=== PATIENT | female | born 1965 | race Caucasian/White ===

== ENCOUNTER 2025-02-09 16:16 | Emergency (ER) | payer MEDICAID ==
[~2025-02-09] VITALS: Ht 170.2 cm; Wt 73.9 kg
[2025-02-09 16:19] VITALS: O2SAT 100
[2025-02-09 16:50] LABS: BASOPHILS % 0.4 % (0.0-2.0); EOSINOPHILS % 2.2 % (0.0-5.0); HEMATOCRIT. 38.0 % (36.0-48.0); HEMOGLOBIN. 13.0 g/dL (12.0-16.0); LYMPHOCYTES % 35.8 % (20.0-50.0); MEAN PLATELET VOLUME 8.9 fl (7.4-10.4); MONOCYTES % 7.0 % (2.0-8.0); NEUTROPHILS % 54.6 % (40.0-76.0); PLATELET 305 x1000/uL (130-400); RED BLOOD CELL COUNT 4.25 mill/uL (4.2-5.4); RED CELL DISTRIBUTION WIDTH 13.0 % (11.6-14.6)
[2025-02-09 17:01] LABS: CREATININE 0.9 mg/dL (0.6-1.0)
[2025-02-09 17:02] LABS: UREA NITROGEN BLOOD 14 mg/dL (9-23)
[2025-02-09 17:03] LABS: ASPARTATE AMINOTRANSFERASE 19 IU/L (<34); BILIRUBIN DIRECT < 0.1 mg/dL (<=3.0)
[2025-02-09 17:04] LABS: BILIRUBIN TOTAL 0.3 mg/dL (0.1-1.0); PROTEIN TOTAL 8.2 g/dL (6.0-8.3)
[2025-02-09] MEDS ORDERED: IBUP-2030 MT (17:11)
[2025-02-09] MEDS: ACETAMINOPHEN 500MG TABLET PO ONE (17:19)
[2025-02-09] MEDS: METOCLOPRAMIDE HCL 10MG/2ML VIAL IV ONE (17:29)
[2025-02-09] MEDS: DIPHENHYDRAMINE 50MG/ML VIAL IV ONE (17:29)
[2025-02-09] MEDS: SODIUM CHLORIDE 0.9% 1,000 ML IV ONE (17:29)
[2025-02-09] MEDS: KETOROLAC 15MG/ML VIAL IV ONE (17:29)
[2025-02-09 18:17] VITALS: BP 130/75; PULSE 87; RESP 14; TEMP 36.9; O2SAT 100
== END 2025-02-09 18:50 | disposition home or self-care (01) ==
LOC: ER 16:18
DX: R51.9 Headache, unspecified (principal); E11.9 Type 2 diabetes mellitus without complications; I10 Essential (primary) hypertension
CPT/HCPCS: 99285; 96374; 70450; 96375; 96361; 80076; 80048; 83690; 83735; 85025; 36415; J1885; J1200; J2765; J7030